=== PATIENT | female | born 1945 | race Caucasian/White ===

== ENCOUNTER 2017-01-26 07:12 | Day surgery (SDC) | payer OTHER, BC ==
[~2017-01-26] VITALS: Ht 167.6 cm; Wt 108.5 kg
[~2017-01-26 07:12] MED LIST: ALEVE220 M2 PO; BISOPROLOL-HCT1 EAC1 PO; CENTRUM COMPLE1 EACH PO; DIOVAN160 MG PO; ELAVIL50 MG PO; GEMFIBROZIL600 MG PO; LEVEMIR FL100 UNIT/1 SC; LEVOTHYROXINE125 MCG PO; LIPITOR80 MG PO; METFORMIN HCL1000 MG PO; NITROFURANTOIN50 MG PO; NORVASC10 MG PO; NOVOFINE PLUS1 EACH MC; NOVOLOG PE100 UNITS/ SC; PRILOSEC20 MG PO; TOUJEO SOL300 UNIT/1 SC
[2017-01-26 10:45] LABS: BASOPHIL COUNT 0.1 K/uL (0-0.1); EOSINOPHIL (%) 6.2 % (0-5); EOSINOPHIL COUNT 0.6 K/uL (0-0.3); HEMATOCRIT 32.5 % (36.0-46.0); IMMATURE GRANULOCYTE (%) 0.7 % (0.0-0.7); IMMATURE GRANULOCYTE COUNT 0.1 K/uL; INSTRUMENT ABS NEUTROPHIL CT 6.5 K/uL; MCH 20.9 PG (29.0-34.0); MCHC 27.7 G/DL (30.0-36.0); MCV 75.6 FL (83-99); MEAN PLAT.VOLUME 9.1 uM^3 (9.5-12.4); MONOCYTE (%) 7.1 % (3-12); MONOCYTE COUNT 0.7 K/uL (0-0.8); NEUTROPHIL (%) 64.8 % (45-76); NEUTROPHIL COUNT 6.5 K/uL (1.8-6.4); PLATELET COUNT 293 K/uL (156-360); RBC DIS.WIDTH-CV 19.9 % (11.8-14.6); RBC DIS.WIDTH-SD 53.5 % (39-53); WHITE BLOOD COUNT 10.1 K/uL (4.1-10.2)
[2017-01-26 10:46] LABS: POINT-OF-CARE METER ID UU13113696
[2017-01-26 17:47] VITALS: BP 159/72
[2017-01-26 19:00] VITALS: BP 142/66
[2017-01-26 23:00] VITALS: BP 131/63
[2017-01-27 04:00] VITALS: BP 155/69
[2017-01-27 08:15] VITALS: BP 138/76
[2017-01-27 11:21] LABS: POINT-OF-CARE METER ID UU13113781
[2017-01-27 12:00] VITALS: BP 139/62
[2017-01-27 14:39] VITALS: BP 128/61
== END 2017-01-27 15:23 | disposition home or self-care (01) ==
LOC: CATH 07:12 → ENRESERV 15:06 → 2SOUTH 15:10 → 4EAST 15:10 → 2SOUTH 15:10 → ENRESERV 15:38 → CATH 17:00 → 4EAST 17:29
PROVIDERS: Internal Medicine Cardiovascular Disease
DX: I25.10 Atherosclerotic heart disease of native coronary artery without angina pectoris (principal); I10 Essential (primary) hypertension; E11.9 Type 2 diabetes mellitus without complications; I49.01 Ventricular fibrillation; J44.9 Chronic obstructive pulmonary disease, unspecified; E78.5 Hyperlipidemia, unspecified; Z79.82 Long term (current) use of aspirin; Z79.4 Long term (current) use of insulin; Z87.891 Personal history of nicotine dependence
CPT/HCPCS: 82948; 85025; 85347; 93005; 94799; C1760; C1769; C1887; C1894; G0378; J0461; J1644; J1940; J2250; J2405; J3010; J7040